=== PATIENT | female | born 1935 | race African-American/Black ===

== ENCOUNTER 2016-08-07 06:06 | Emergency (ER) | payer MEDICARE, OTHER ==
--- NOTE | 2016-08-07 07:27 | ER Document Report ---
ED General - General Chief Complaint: Leg Pain Stated Complaint: LEG PAIN Time Seen by Provider: 08/07/16 07:04 Mode of Arrival: Ambulatory Information source: Patient, Relative - daughter Notes: Patient presents emergency department with complaints of left lower leg and ankle pain. Reports she woke up with the pain. 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 Reports last DVT was over a year ago. Patient is taking Coumadin. Patient denies trauma. Denies other symptoms such as fever vomiting diarrhea. Patient does report shortness of breath for over a year. She reports she thinks it tied to her glaucoma eyedrops. Patient speaking in clear sentences no respiratory distress. Declines pain medication. TRAVEL OUTSIDE OF THE [place] IN LAST 30 DAYS: No - HPI Patient complains to provider of: LLL pain Onset: This morning Onset/Duration: Sudden Quality of pain: Achy Severity: Moderate Pain Level: 3 Associated symptoms: None Exacerbated by: Movement Relieved by: Denies Similar symptoms previously: Yes Recently seen / treated by doctor: No - Related Data Allergies/Adverse Reactions: No Known Allergies Allergy (Unverified 05/18/11 00:07) Past Medical History - General Information source: Patient, Relative - daughter - Social History Smoking Status: Never Smoker Cigarette use (# per day): No Frequency of alcohol use: None Drug Abuse: None Family History: Reviewed & Not Pertinent Patient has suicidal ideation: No Patient has homicidal ideation: No - Past Medical History Cardiac Medical History: Reports: Hx Congestive Heart Failure, Hx DVT, Hx Hypercholesterolemia, Hx Hypertension, Hx Pulmonary Embolism Pulmonary Medical History: Denies: Hx Tuberculosis Renal/ Medical History: Denies: Hx Peritoneal Dialysis GI Medical History: Reports: Hx Gastroesophageal Reflux Disease Musculoskeltal Medical History: Reports Hx Arthritis Past Surgical History: Reports: Hx Hysterectomy - Immunizations Hx Diphtheria, Pertussis, Tetanus Vaccination: No Review of Systems - Review of Systems Notes: Review HPI for review of systems., All other systems negative Physical Exam - Vital signs Vitals: Temp Pulse Resp BP Pulse Ox 97.3 F 64 14 184/110 H 100 08/07/16 06:12 08/07/16 06:12 08/07/16 06:12 08/07/16 06:12 08/07/16 06:12 - Notes Notes: PHYSICAL EXAMINATION: GENERAL: Well-appearing and in no acute distress HEAD: Atraumatic, normocephalic. EYES: Pupils equal round extraocular movements intact, sclera anicteric, conjunctiva are normal. ENT: nares patent, Moist mucous membranes. NECK: Normal range of motion, supple without lymphadenopathy LUNGS: CTAB and equal. No wheezes rales or rhonchi. HEART: Regular rate and rhythm without murmurs ABDOMEN: Soft, no tenderness. No guarding, no rebound EXTREMITIES: Normal range of motion, no pitting edema. No cyanosis. r/o left ankle, calf pain, Negative Homans no erythema no swelling no warmth no obvious deformity good pedal pulse NEUROLOGICAL: Cranial nerves grossly intact. Normal sensory/motor exams. PSYCH: Normal mood, normal affect. SKIN: Warm, Dry, normal turgor, no rashes or lesions noted Course - Re-evaluation Re-evalutation: 08/07/16 Patient and her daughter instructed on negative Doppler. Left ankle x-ray negative, chest x-ray negative labs unremarkable. Patient and daughter instructed to follow-up with her primary care provider on Tuesday. They both verbalized understanding - Vital Signs Vital signs: Temp Pulse Resp BP Pulse Ox 98.2 F 64 18 125/81 100 08/07/16 10:17 08/07/16 10:17 08/07/16 10:17 08/07/16 10:17 08/07/16 10:17 - Laboratory Result Diagrams: 08/07/16 09:09 08/07/16 09:09 Laboratory results interpreted by me: 08/07/16 08/07/16 08/07/16 09:09 09:09 09:09 Hgb 11.7 L RDW 16.6 H Plt Count 143 L PT 23.4 H Est GFR (Non-Af Amer) 58 L - Diagnostic Test Radiology reviewed: Image reviewed, Reports reviewed - Diagnostic report text EXAM DESCRIPTION: VENOUS UNILATERAL LOWER COMPLETED DATE/TIME: 08/07/2016 9: 33 am REASON FOR STUDY: hx dvt, left lower leg pain COMPARISON: None. TECHNIQUE: Dynamic and static dawson scale and color images acquired of the left leg venous system. Selected spectral images acquired with additional compression and augmentation maneuvers. The contralateral common femoral vein and saphenofemoral junction were also imaged. Images stored on PACS. LIMITATIONS: None. FINDINGS: LEFT: COMMON FEMORAL: Normal phasicity, compression and augmentation. No visualized echogenic material on dawson scale. No defects on color images. FEMORAL: Normal compression and augmentation. No visualized echogenic material on dawson scale. No defects on color images. POPLITEAL: Normal compression, augmentation. No visualized echogenic material on dawson scale. No defects on color images. CALF VESSELS: Normal compression, augmentation. No visualized echogenic material on dawson scale. No defects on color images. GSV and SSV: Normal compression, augmentation. No visualized echogenic material on dawson scale. No defects on color images. ANY DEEP VENOUS INSUFFICIENCY: Not evaluated. ANY EVIDENCE OF POPLITEAL CYST: No. OTHER: No other significant finding. RIGHT COMMON FEMORAL VEIN AND SAPHENOFEMORAL JUNCTION: Normal phasicity, compression and augmentation. No visualized echogenic material on dawson scale. No defects on color images. Diagnostic report text EXAM DESCRIPTION: ANKLE LEFT COMPLETE COMPLETED DATE/TIME: 2016 8:16 am REASON FOR STUDY: pain COMPARISON: None. NUMBER OF VIEWS: Three views. TECHNIQUE: AP, lateral, and oblique radiographic images acquired of the left ankle. LIMITATIONS: None. FINDINGS: MINERALIZATION: Osteopenic BONES: No acute fracture or dislocation. No worrisome bone lesions. JOINTS: No effusions. SOFT TISSUES: No soft tissue swelling. No foreign body. OTHER: No other significant finding. IMPRESSION: NEGATIVE STUDY OF THE LEFT ANKLE. NO RADIOGRAPHIC EVIDENCE OF ACUTE INJURY IMPRESSION: NO EVIDENCE OF DVT OR SVT IN THE LEFT LEG. Discharge - Discharge Clinical Impression: Elevated blood pressure reading Left ankle pain Qualifiers: Chronicity: acute Qualified Code(s): M25.572 - Pain in left ankle and joints of left foot Condition: Stable Disposition: HOME, SELF-CARE Additional Instructions: *You have been evaluated for an ankle pain, history of DVT. Elevated blood pressure reading *The doppler was negative for a DVT *Follow up with primary care provider Tuesday for recheck *Take your medication as prescribed *Return to ED for worsening condition, changes, needs Monitor your blood pressure. Your blood pressure was elevated today. This may be because you were anxious, in pain or because you need medication. It is important to follow up with your primary care provider for full evaluation. Forms: Elevated Blood Pressure
--- NOTE | 2016-08-07 08:48 | RADIOLOGY REPORT (SQ) ---
EXAM DESCRIPTION: CHEST PA/LAT COMPLETED DATE/TIME: 08/07/2016 8:16 am REASON FOR STUDY: sob COMPARISON: Two-view chest 01/21/2012 CT chest 05/18/2011 EXAM PARAMETERS: NUMBER OF VIEWS: two views TECHNIQUE: Digital Frontal and Lateral radiographic views of the chest acquired. RADIATION DOSE: NA LIMITATIONS: none FINDINGS: LUNGS AND PLEURA: There is pulmonary vascular prominence and few Pato lines at the left lung base worrisome for mild fluid overload or congestive failure. No pleural effusion. No pneumoth orax. No dense consolidation worrisome for pneumonia. MEDIASTINUM AND HILAR STRUCTURES: No masses or contour abnormalities. HEART AND VASCULAR STRUCTURES: Borderline cardiomegaly BONES: No acute findings. HARDWARE: None in the chest. OTHER: No other significant finding. IMPRESSION: Pulmonary vascular congestion with few Pato lines, question mild fluid overload or con gestive failure TECHNICAL DOCUMENTATION: JOB ID: [id number] [employer]- All Rights Reserved
--- NOTE | 2016-08-07 08:49 | RADIOLOGY REPORT (SQ) ---
EXAM DESCRIPTION: ANKLE LEFT COMPLETE COMPLETED DATE/TIME: 08/07/2016 8:16 am REASON FOR STUDY: pain COMPARISON: None. NUMBER OF VIEWS: Three views. TECHNIQUE: AP, lateral, and oblique radiographic images acquired of the left ankle. LIMITATIONS: None. FINDINGS: MINERALIZATION: Osteopenic BONES: No acute fracture or dislocation. No worrisome bone lesions. JOINTS: No effusions. SOFT TISSUES: No soft tissue swelling. No foreign body. OTHER: No other significant finding. IMPRESSION: NEGATIVE STUDY OF THE LEFT ANKLE. NO RADIOGRAPHIC EVIDENCE OF ACUTE INJURY. TECHNICAL DOCUMENTATION: JOB ID: [id number] [employer]- All Rights Reserved
[2016-08-07 09:20] LABS: ABSOLUTE BASOPHILS # (AUTO) 0.1 10^3/uL (0.0-0.2); ABSOLUTE EOSINOPHILS # (AUTO) 0.2 10^3/uL (0.0-0.6); ABSOLUTE LYMPHOCYTES (AUTO) 1.5 10^3/uL (0.5-4.7); ABSOLUTE MONOCYTES (AUTO) 0.4 10^3/uL (0.1-1.4); ABSOLUTE NEUT (AUTO) 2.8 10^3/uL (1.7-8.2); BASOPHILS % (AUTO) 1.4 % (0-2); EOSINOPHILS % (AUTO) 4.1 % (0-6); HEMATOCRIT 36.1 % (36.0-47.0); HEMOGLOBIN 11.7 g/dL (12.0-15.5); LYMPHOCYTES % (AUTO) 29.8 % (13-45); MEAN CORPUSCULAR HEMOGLOBIN 27.1 pg (27.0-33.4); MEAN CORPUSCULAR HGB CONC 32.4 g/dL (32.0-36.0); MEAN CORPUSCULAR VOLUME 84 fl (80-97); MONOCYTES % (AUTO) 7.9 % (3-13); RED BLOOD COUNT 4.32 10^6/uL (3.72-5.28); RED CELL DISTRIBUTION WIDTH 16.6 % (11.5-14.0); SEGMENTED NEUTROPHILS % (AUTO) 56.8 % (42-78)
[2016-08-07 09:25] LABS: PROTHROMBIN TIME 23.4 SEC (11.4-15.4)
[2016-08-07 09:26] LABS: PARTIAL THROMBOPLASTIN TIME 34.5 SEC (23.5-35.8)
[2016-08-07 09:43] LABS: ALANINE AMINOTRANSFERASE 22 U/L (9-52); ALKALINE PHOSPHATASE 106 U/L (38-126); ANION GAP 11 (5-19); ASPARTATE AMINO TRANSFERASE 22 U/L (14-36); BILIRUBIN,DIRECT 0.3 mg/dL (0.0-0.4); BILIRUBIN,TOTAL 0.6 mg/dL (0.2-1.3); BLOOD UREA NITROGEN 19 mg/dL (7-20); CALCIUM 10.2 mg/dL (8.4-10.2); CARBON DIOXIDE 25 mmol/L (22-30); CHLORIDE 106 mmol/L (98-107); CREATININE RESULT 0.93 mg/dL (0.52-1.25); GLUCOSE 102 mg/dL (75-110); POTASSIUM 4.1 mmol/L (3.6-5.0); TOTAL PROTEIN 8.2 g/dL (6.3-8.2)
--- NOTE | 2016-08-07 09:48 | RADIOLOGY REPORT (SQ) ---
EXAM DESCRIPTION: VENOUS UNILATERAL LOWER COMPLETED DATE/TIME: 08/07/2016 9:33 am REASON FOR STUDY: hx dvt, left lower leg pain COMPARISON: None. TECHNIQUE: Dynamic and static dawson scale and color images acquired of the left leg venous system. Se lected spectral images acquired with additional compression and augmentation maneuvers. The contralat eral common femoral vein and saphenofemoral junction were also imaged. Images stored on PACS. LIMITATIONS: None. FINDINGS: LEFT: COMMON FEMORAL: Normal phasicity, compression and augmentation. No visualized echogenic material on g ray scale. No defects on color images. FEMORAL: Normal compression and augmentation. No visualized echogenic material on dawson scale. No defe cts on color images. POPLITEAL: Normal compression, augmentation. No visualized echogenic material on dawson scale. No defec ts on color images. CALF VESSELS: Normal compression, augmentation. No visualized echogenic material on dawson scale. No de fects on color images. GSV and SSV: Normal compression, augmentation. No visualized echogenic material on dawson scale. No def ects on color images. ANY DEEP VENOUS INSUFFICIENCY: Not evaluated. ANY EVIDENCE OF POPLITEAL CYST: No. OTHER: No other significant finding. RIGHT COMMON FEMORAL VEIN AND SAPHENOFEMORAL JUNCTION: Normal phasicity, compression and augmentation. No visualized echogenic material on dawson scale. No de fects on color images. IMPRESSION: NO EVIDENCE OF DVT OR SVT IN THE LEFT LEG. TECHNICAL DOCUMENTATION: JOB ID: [id number] [employer]- All Rights Reserved
[2016-08-07 10:22] VITALS: BP 125/81
--- NOTE | 2016-08-07 10:51 | EKG REPORT ---
SEVERITY:- ABNORMAL ECG - SINUS RHYTHM NONSPECIFIC T ABNORMALITIES, INFERIOR LEADS : Confirmed by: Lela Geiger 07-Aug-2016 10:50:55
== END 2016-08-07 10:22 | disposition home or self-care (01) ==
LOC: ER 06:06
DX: R03.0 Elevated blood-pressure reading, without diagnosis of hypertension (principal); M25.572 Pain in left ankle and joints of left foot; M79.605 Pain in left leg; Z86.718 Personal history of other venous thrombosis and embolism; R06.02 Shortness of breath
CPT/HCPCS: 36415; 71020; 80053; 85025; 85610; 85730; 93005; 93010; 93971; 99284

== ENCOUNTER 2017-12-12 18:53 | Emergency (ER) | payer MEDICARE, OTHER ==
--- NOTE | 2017-12-12 20:45 | ER Document Report ---
ED Extremity Problem, Lower - General Chief Complaint: Leg Pain Stated Complaint: LEFT SWOLLEN LEG AND FOOT Time Seen by Provider: 12/12/17 20:01 TRAVEL OUTSIDE OF THE [place] IN LAST 30 DAYS: No - HPI Notes: Patient is a 82-year-old female that presents to the emergency department for chief complaint of left knee pain. Patient states since 11/15/17 she has had increased swelling and pain in her left knee. She denies injury or trauma. She has seen her primary care provider for this pain in the past but is not sure what the recommendation was. Patient states she is concerned she may have a blood clot. She is on Coumadin for history of DVT and PE. She is not sure what her last INR was. Patient denies any fevers or warmth in the joint. She denies history of gout. She states the pain is sharp and worse with ambulation. It is relieved with rest and elevation. Past Medical History: DVT, PE Past Surgical History: Reviewed in chart Social History: Reviewed in chart Family History: Reviewed and noncontributory for presenting illness Allergies: Reviewed, see documented allergy list. REVIEW OF SYSTEMS: CONSTITUTIONAL : No fever No chills No diaphoresis No recent illness EENT: No vision changes No congestion No sore throat CARDIOVASCULAR: No chest pain No palpitations RESPIRATORY: No shortness of breath No cough No difficulty breathing GASTROINTESTINAL: No abdominal pain No nausea No vomiting No diarrhea GENITOURINARY: No dysuria No hematuria No difficulty urinating MUSCULOSKELETAL: No back pain leg pain No arm pain SKIN: No rashes No lesions LYMPHATIC: No swollen, enlarged glands. NEUROLOGICAL: No lightheadedness No headache No weakness No paresthesias PSYCHIATRIC: No anxiety No depression PHYSICAL EXAMINATION: Vital signs reviewed, nursing noted reviewed. GENERAL: Well-appearing, well-nourished and in no acute distress. HEAD: Atraumatic, normocephalic. EYES: Eyes appear normal, extraocular movements intact, sclera anicteric, conjunctiva are normal. ENT: nares patent, oropharynx clear without exudates. Moist mucous membranes. NECK: Normal range of motion, supple without lymphadenopathy LUNGS: Breath sounds clear to auscultation bilaterally and equal. No wheezes rales or rhonchi. HEART: Regular rate and rhythm without murmurs ABDOMEN: Soft, nontender, normoactive bowel sounds. No rebound, guarding, or rigidity. No masses appreciated. EXTREMITIES: Left knee nontender, good range of motion, no calor, no erythema, mild effusion. No pitting or edema. NEUROLOGICAL: No focal neurological deficits. Moves all extremities spontaneously Motor and sensory grossly intact on exam. PSYCH: Normal mood, normal affect. SKIN: Warm, Dry, normal turgor, no rashes or lesions noted on exposed skin - Related Data Allergies/Adverse Reactions: No Known Allergies Allergy (Unverified 05/18/11 00:07) Past Medical History - Social History Smoking Status: Former Smoker Chew tobacco use (# tins/day): No Drug Abuse: None Family History: Reviewed & Not Pertinent Patient has suicidal ideation: No Patient has homicidal ideation: No - Past Medical History Cardiac Medical History: Reports: Hx Congestive Heart Failure, Hx DVT, Hx Hypercholesterolemia, Hx Hypertension, Hx Pulmonary Embolism Pulmonary Medical History: Denies: Hx Tuberculosis Renal/ Medical History: Denies: Hx Peritoneal Dialysis GI Medical History: Reports: Hx Gastroesophageal Reflux Disease Musculoskeletal Medical History: Reports Hx Arthritis Past Surgical History: Reports: Hx Hysterectomy - Immunizations Hx Diphtheria, Pertussis, Tetanus Vaccination: No Review of Systems - Review of Systems Notes: Dictated Physical Exam - Vital signs Vitals: Temp Pulse Resp BP Pulse Ox 97.7 F 83 16 110/71 100 12/12/17 19:00 12/12/17 19:00 12/12/17 19:00 12/12/17 19:00 12/12/17 19:00 - Notes Notes: Dictated Course - Re-evaluation Re-evalutation: 12/12/17 20:44 Vitals reviewed. Nursing notes reviewed. Patient has no erythema or warmth and septic arthritis is not suspected. She was given Tylenol for pain. Ultrasound shows no acute DVT. INR 1.7. Patient will follow with her PCP for possible orthopedic referral or physical therapy if her knee pain continues. She was counseled on rest, ice, and elevation. Discharged in stable condition. 12/12/17 21:10 Laboratory 12/12/17 20:50 PT 20.8 H INR 1.70 - Vital Signs Vital signs: Temp Pulse Resp BP Pulse Ox 97.7 F 83 16 110/71 100 12/12/17 19:00 12/12/17 19:00 12/12/17 19:00 12/12/17 19:00 12/12/17 19:00 - Laboratory Laboratory results interpreted by me: 12/12/17 20:50 PT 20.8 H Discharge - Discharge Clinical Impression: Effusion, left knee Left knee pain Qualifiers: Chronicity: acute Qualified Code(s): M25.562 - Pain in left knee Condition: Stable Disposition: HOME, SELF-CARE Instructions: Knee Effusion ([facility]) Additional Instructions: Please return to the emergency department if you have any worsening, or concern of your symptoms. Please return to the emergency department if you develop chest pain, difficulty breathing, severe abdominal pain, or ongoing vomiting. Please follow-up with your primary care physician in 2-3 days and any other recommended physicians. If prescribed, take all medications as directed. If you have any questions or concerns do not hesitate to return the emergency department for evaluation. []
[2017-12-12 21:06] LABS: PROTHROMBIN TIME 20.8 SEC (11.4-15.4)
[2017-12-12] MEDS ORDERED: ACETAMINOPHEN 325 MG TABLET PO ONE (21:11)
[2017-12-12 21:28] VITALS: BP 128/76
--- NOTE | 2017-12-13 08:04 | XCELERA REPORT ---
[address] [facility] [address] Lower Extremity Venous Evaluation Procedure: Color flow and duplex imaging of the veins of the left lower extremity as well as the right Common Femoral vein. Right Sided Venous Evaluation The right common femoral vein is fully compressible. Spontaneous and phasic flow is present in the right common femoral vein. Left Sided Venous Evaluation Normal vessel filling wall to wall, compression and augmentation as well as Colour flow down to the infrageniculate veins. Interpretation Summary No duplex evidence of DVT or obstruction in the left lower extremity nor in the right Common Femoral vein. Name: JAZMINE TARANGO Age: 82 yrs Gender: Female : 1935 Patient Status: Emergency Patient Location: ER Study Date: 12/12/2017 08:21 PM Reason For Study: pain left leg / Hx clots Ordering Physician: ROSALINDA BRAVO Performed By: Sona Devine : ROSALINDA BRAVO > Maykel Guerrero
== END 2017-12-12 21:28 | disposition home or self-care (01) ==
LOC: ER 18:53
DX: M25.562 Pain in left knee (principal); M25.462 Effusion, left knee; I10 Essential (primary) hypertension; I82.409 Acute embolism and thrombosis of unspecified deep veins of unspecified lower extremity; I26.99 Other pulmonary embolism without acute cor pulmonale; Z79.01 Long term (current) use of anticoagulants; Z87.891 Personal history of nicotine dependence
CPT/HCPCS: 99284; 36415; 85610; 93971 ×2; A9270